=== PATIENT | male | born 1990 | race Caucasian/White ===

== ENCOUNTER 2017-05-07 18:10 | Emergency (ER) | payer OTHER ==
[~2017-05-07] VITALS: Ht 190.5 cm; Wt 84.4 kg
[2017-05-07] MEDS ORDERED: XANAX1 MG PO (18:58)
[2017-05-07] MEDS ORDERED: OXYCONTIN15 MG PO (18:59)
[2017-05-07] MEDS ORDERED: ATIVAN1 MG PO (18:59)
[2017-05-07 19:00] VITALS: BP 118/73
[2017-05-07 19:21] LABS: HEMATOCRIT 42.7 % (42.0-52.0); MCH 30.7 pg (26.0-34.0); MCHC 35.1 g/dL (28.0-37.0); MCV 87.5 fL (80.0-100.0); RBC 4.88 mil/uL (4.50-6.00); RDW 13.2 % (10.5-14.5); WBC 4.5 thou/uL (4.0-11.0)
[2017-05-07 19:31] LABS: CALCIUM 9.6 mg/dL (8.5-10.1); CREATININE 0.9 mg/dL (0.7-1.3); POTASSIUM 3.8 mmol/L (3.5-5.1); SALICYLATE 4.6 mg/dL (2.8-20.0)
== END 2017-05-07 21:16 | disposition left against medical advice (07) ==
LOC: ER 18:10
PROVIDERS: Emergency Medicine
DX: F41.9 Anxiety disorder, unspecified (principal); F11.10 Opioid abuse, uncomplicated; F17.210 Nicotine dependence, cigarettes, uncomplicated

== ENCOUNTER 2017-05-19 15:29 | Emergency (ER) | payer OTHER ==
[~2017-05-19] VITALS: Ht 188 cm; Wt 88.5 kg
[~2017-05-19 15:29] MED LIST: ATIVAN1 MG PO; OXYCONTIN15 MG PO; XANAX1 MG PO
[2017-05-19 16:31] LABS: ABSOLUTE NEUTROPHILS 4.3 thou/uL (1.4-8.2); BASOPHILS 0.4 % (0.0-2.0); EOSINOPHILS 1.7 % (0.0-3.0); HEMOGLOBIN 15.7 gm/dL (14.0-18.0); LYMPHOCYTES 22.8 % (24.0-44.0); MCH 30.8 pg (26.0-34.0); MCHC 34.2 g/dL (28.0-37.0); MCV 90.1 fL (80.0-100.0); PLATELET COUNT 185 thou/uL (150-400); POLYS 67.1 % (36.0-66.0); RDW 13.1 % (10.5-14.5); WBC 6.5 thou/uL (4.0-11.0)
[2017-05-19 16:38] LABS: ANION GAP 6 mmol/L (7-16); BUN 14 mg/dL (7-18); CALCIUM 9.4 mg/dL (8.5-10.1); CHLORIDE 104 mmol/L (98-107); CO2 27 mmol/L (21-32); CREATININE 0.9 mg/dL (0.7-1.3); GLUCOSE 97 mg/dL (74-106); POTASSIUM 4.5 mmol/L (3.5-5.1); SODIUM 137 mmol/L (136-145)
[2017-05-19 16:44] LABS: ALBUMIN 4.3 g/dL (3.4-5.0); DIRECT BILIRUBIN < 0.1 mg/dL (<0.1-0.3); LIPASE 116 U/L (73-393); SGOT 19 U/L (15-37); SGPT 17 U/L (30-65); TOTAL BILIRUBIN 0.4 mg/dL (<0.1-1.0)
[2017-05-19 17:10] VITALS: BP 110/76
== END 2017-05-19 17:21 | disposition home or self-care (01) ==
LOC: ER 15:29
PROVIDERS: Emergency Medicine
DX: F41.9 Anxiety disorder, unspecified (principal); F11.20 Opioid dependence, uncomplicated; F13.20 Sedative, hypnotic or anxiolytic dependence, uncomplicated; F17.210 Nicotine dependence, cigarettes, uncomplicated